=== PATIENT | female | born 1965 | race Caucasian/White ===

== ENCOUNTER 2022-03-10 13:00 | Outpatient (CLI) | payer BC | END 2022-03-10 13:01 | disposition home or self-care (01) | LOC: TBSIIMAG 13:00 | PROVIDERS: ATTEND Surgery | DX: M48.062 Spinal stenosis, lumbar region with neurogenic claudication (principal); M47.816 Spondylosis without myelopathy or radiculopathy, lumbar region; M48.07 Spinal stenosis, lumbosacral region; M51.37 Other intervertebral disc degeneration, lumbosacral region; M51.36 Other intervertebral disc degeneration, lumbar region; Z98.890 Other specified postprocedural states | CPT/HCPCS: 72148 ==

== ENCOUNTER 2022-03-31 08:33 | Outpatient (CLI) | payer BC ==
[2022-03-31 09:44] LABS: Hemoglobin 13.3 g/dL (12.0-15.5); Mean Corpuscular HGB CONC 33.8 g/dL (32.0-36.0); Mean Corpuscular Hemoglobin 30.9 pg (27.0-33.0); Mean Corpuscular Volume 91.6 fl (81.6-98.3); Mean Platelet Volume 10.6 fl (7.4-10.4); Platelet Count 247 10x3/uL (150-450); RBC Distribution Width 13.6 % (11.5-14.5); White Blood Cell (WBC) Count 6.4 10x3/uL (3.5-10.5)
[2022-03-31 09:53] LABS: PTT 25.4 sec (22.0-33.0); Prothrombin Time 10.5 sec (9.5-12.1)
[2022-03-31 10:13] LABS: Anion Gap 16 mmol/L (10-20); BUN (Urea Nitrogen) 16 mg/dL (9.8-20.1); Calc. Creatinine Clearance 0 mL/min (70-130); Calcium 9.3 mg/dL (7.8-10.44); Carbon Dioxide 22 mmol/L (22-29); Chloride 106 mmol/L (98-107); Estimated GFR 72; Glucose 125 mg/dL (70-105); Potassium 4.5 mmol/L (3.5-5.1); Sodium 139 mmol/L (136-145)
== END 2022-03-31 08:34 | disposition home or self-care (01) ==
LOC: LABBT 08:33
PROVIDERS: ATTEND Surgery
DX: Z01.818 Encounter for other preprocedural examination (principal); M48.062 Spinal stenosis, lumbar region with neurogenic claudication; M51.16 Intervertebral disc disorders with radiculopathy, lumbar region; Z20.822 Contact with and (suspected) exposure to COVID-19
CPT/HCPCS: 80048; 85027; 85610; 85730; 87811; 93005; 93010

== ENCOUNTER 2022-04-03 05:53 | Observation (INO) | payer BC ==
[2022-04-02 10:49] VITALS: BMI 33.3
[2022-04-03] MEDS ORDERED: Sodium Chloride 0.9% 0 ML ONE (06:55)
[2022-04-03] MEDS ORDERED: CEFAZOLIN 2 GM VIAL ONE ×2 (06:55→07:24)
[2022-04-03] MEDS ORDERED: Thrombin 5000 UNITS/5 ML VIAL ONE (07:10)
[2022-04-03] MEDS ORDERED: fentaNYL Citrate/PF 100 MCG/2 ML SYRINGE ONE (07:22)
[2022-04-03] MEDS ORDERED: Midazolam HCl 2 mg/2 ml Vial ONE (07:22)
[2022-04-03] MEDS ORDERED: Sodium Chloride 0.9% 100 ML ONE (07:24)
[2022-04-03] MEDS ORDERED: Ondansetron PF 4 MG/2 ML Vial ONE (07:41)
[2022-04-03] MEDS ORDERED: Rocuronium Bromide 10 MG/ML (10ML VIAL) ONE (07:41)
[2022-04-03] MEDS ORDERED: PROPOFOL 200 MG/20 ML VIAL ONE (07:41)
[2022-04-03] MEDS ORDERED: Lidocaine 1% MPF 2 ML VIAL ONE (07:41)
[2022-04-03] MEDS ORDERED: Dexamethasone 20 MG/5 ML VIAL ONE (07:41)
[2022-04-03] MEDS ORDERED: ePHEDrine 50 MG/ML VIAL ONE (07:41)
[2022-04-03] MEDS ORDERED: SUGAMMADEX SODIUM 200 MG/2 ML VIAL ONE (09:32)
[2022-04-03] MEDS ORDERED: HYDROcodone/Acetaminophen 7.5/325 mg Tablet PO PRN (10:05)
[2022-04-03] MEDS ORDERED: Acetaminophen/Codeine 30-300mg Tablet PO PRN (10:05)
[2022-04-03] MEDS ORDERED: Acetaminophen 325 MG TAB PO PRN (10:05)
[2022-04-03] MEDS ORDERED: traMADol HCl 50 MG TAB PO PRN (10:05)
[2022-04-03] MEDS ORDERED: Ondansetron PF 4 MG/2 ML Vial IVP PRN (10:07)
[2022-04-03] MEDS ORDERED: diphenhydrAMINE 25 MG CAP PO PRN (10:07)
[2022-04-03] MEDS ORDERED: Promethazine HCl 25 MG/ML VIAL IM PRN (10:09)
[2022-04-03] MEDS ORDERED: Ondansetron HCl/PF 4 MG/2 ML Vial IVP PRN (10:09)
[2022-04-03] MEDS ORDERED: Promethazine HCl 25 MG/ML VIAL IVPB PRN (10:09)
[2022-04-03] MEDS ORDERED: Fentanyl 100 MCG/2 ML VIAL ONE ×3 (10:12→10:48)
[2022-04-03] MEDS ORDERED: CeleCOXIB 100 MG CAP PO PRN (11:04)
[2022-04-03] MEDS: tiZANidine HCl 4 MG TAB PO PRN ×2 (11:33→20:22)
[2022-04-03] MEDS: Morphine 2 MG/ML VIAL SLOW IVP PRN ×2 (11:37→16:39)
[2022-04-03] MEDS: Sodium Chloride 0.9% 1,000 ML IV SCH ×2 (14:21→20:11)
[2022-04-03] MEDS: CEFAZOLIN 2 GM in Sodium Chloride 0.9% 100 ML IVPB SCH ×2 (16:40→23:06)
[2022-04-04] MEDS ORDERED: Lisinopril 5 MG TAB PO SCH (09:00)
[2022-04-04] MEDS ORDERED: DULoxetine 30 MG CAP PO SCH (09:00)
[2022-04-04 09:20] VITALS: BP 120/78; TEMP 97.4
[2022-04-04] MEDS: Sodium Chloride 0.9% 1,000 ML IV SCH (11:31)
[2022-04-04] MEDS: tiZANidine HCl 4 MG TAB PO PRN (11:31)
== END 2022-04-04 11:55 | disposition home or self-care (01) ==
LOC: SDC 05:53 → SURG A 11:23
PROVIDERS: ADMIT Surgery; ATTEND Surgery
PROC: 01NB0ZZ Release Lumbar Nerve, Open Approach (ICD-10-PCS; principal; 2022-04-03)
PROC: 0SB20ZZ Excision of Lumbar Vertebral Disc, Open Approach (ICD-10-PCS; 2022-04-03)
DX: M51.16 Intervertebral disc disorders with radiculopathy, lumbar region (principal); M48.062 Spinal stenosis, lumbar region with neurogenic claudication; I10 Essential (primary) hypertension; E78.5 Hyperlipidemia, unspecified; G89.4 Chronic pain syndrome; E66.9 Obesity, unspecified; Z68.32 Body mass index [BMI] 32.0-32.9, adult; Z87.891 Personal history of nicotine dependence; Z79.899 Other long term (current) drug therapy
CPT/HCPCS: 76000; 96367; 96375; 96376; G0378; J0690; J1100; J2250; J2270; J2405; J2704; J3010; J3370; J3490; J7050